=== PATIENT | male | born 1945 | race Two or more races ===

== ENCOUNTER 2022-08-04 08:00 | Outpatient (RCR) | payer MEDICARE, SELFPAY ==
[2022-09-28 15:36] LABS: Basophils Absolute Auto 0.1 X10*3/uL (0.0-0.2); Basophils Percent Auto 0.6 % (0-2); Hematocrit 31.3 % (42.0-52.0); Hemoglobin 10.5 g/dl (14.0-18.0); Imm Gran Pct Auto 0.8 % (0.0-0.4); Lymphocytes Absolute Auto 3.3 X10*3/uL (1.2-4.9); MANUAL DIFF FLAG NO; Mean Corpuscular HGB Conc 33.5 g/dl (31.0-36.0); Mean Corpuscular Hemoglobin 28.1 pg (27.0-33.0); Mean Corpuscular Volume 83.7 fL (80.0-98.0); Mean Platelet Volume 10.3 fL (9.4-12.4); Neutrophils Absolute Auto 7.1 x10*3/uL (2.0-8.3); Neutrophils Percent Auto 56.6 % (45-73); Platelet Count 353 X10*3/uL (160-400); Red Blood Count 3.74 X10*6/uL (4.60-5.80); Red Cell Distribution Width 13.1 % (11.0-16.0); White Blood Count 12.5 X10*3/uL (4.8-10.8)
[2022-09-28 16:28] LABS: Erythrocyte Sedimentation Rate 91 MM/HR (0-15)
[2022-09-28 20:43] LABS: Anion Gap 20 (12-20); Blood Urea Nitrogen 44 mg/dL (9-16); C Reactive Protein 16.08 mg/dL (< or = 0.50); Calcium 10.3 mg/dL (8.4-10.2); Carbon Dioxide 21 mmol/L (22-29); Chloride 98 mmol/L (96-108); Estimated Glomerular Filt Rate 30; Glucose Random 348 mg/dL (60-115); Potassium 4.4 mmol/L (3.3-5.1); Sodium 135 mmol/L (135-145)
[2022-09-29 08:32] LABS: Estimated Average Glucose 246 mg/dL; Hemoglobin A1c % 10.2 %
== END 2023-05-27 17:00 | disposition home or self-care (01) ==
LOC: HO.WCC 08:00
PROVIDERS: Physician Assistant; Visit Provider Surgery
DX: E11.621 Type 2 diabetes mellitus with foot ulcer (principal); L97.522 Non-pressure chronic ulcer of other part of left foot with fat layer exposed; Z89.412 Acquired absence of left great toe; Z79.899 Other long term (current) drug therapy; Z79.4 Long term (current) use of insulin
CPT/HCPCS: 11042; 11043; 36415; 73630; 80048; 83036; 84134; 85025; 85652; 86140; 87070; 87073; 87076; 87077; 87186; 87205